=== PATIENT | female | born 1955 ===

== ENCOUNTER 2023-07-09 07:48 | Outpatient (REF) | payer MEDICARE, SELFPAY | END 2023-07-09 07:49 | disposition home or self-care (01) | LOC: HO.SH 07:48 | PROVIDERS: Visit Provider Nurse Practitioner Primary Care | DX: Z01.118 Encounter for examination of ears and hearing with other abnormal findings (principal); H90.3 Sensorineural hearing loss, bilateral | CPT/HCPCS: 92557 ==